=== PATIENT | male | born 1955 | race Caucasian/White ===

== ENCOUNTER → 2017-03-16 11:51 | Outpatient (CLI) | payer OTHER, SELFPAY ==
--- NOTE | 2017-03-16 | CYSPIN_PTH ---
PATIENT: RENALDO LO LOC: [facility] U#:[id number] AGE/SX: 69/M ROOM: RE03/16/[address]: Dr. Monroe Poe MD : 1955 BED: DIS: SPEC #: [id number] RECD: 03/16/17 11:15 STATUS: GRAHAM PAM #: [id number] BRIDGETT: 03/16/17 00:[address]: Monroe Poe DEPT: CYTOLOGY RECD BY: Walt Alfred ENTERED: 03/16/17 13:45 SP TYPE: CYSPIN FL OTHR DR: Dr. Nacho Hurd MD Tissues: Urine Procedures: Pap Stain (control) Special Stain Group II Cytospin Fluid HEADER OPERATION: Not noted PRE-OP DIAGNOSIS: Hematuria R31.9 TISSUE SUBMITTED: Urine for cytology DIAGNOSIS CYTOLOGY Urine for cytology (cytospin): Negative for malignant cells. SJ:angel 03/17/17 CYTOLOGY STUDY Slides are reviewed. The specimen consists of benign urothelial cells, red blood cells, and neutrophils. CYTOLOGY GROSS Received is 80 ml of clear yellow fluid labeled with the patient's name and and designated per the requisition as urine. Submitted for cytology preparation. 03/16/17 TC:5 CPT: 08859
[2017-03-16 11:53] LABS: Cytology, Body Fluid / CSF SEE PATHOLOGY REPORT
== END ==
PROVIDERS: Visit Provider Urology
DX: R31.9 Hematuria, unspecified (principal)
CPT/HCPCS: 88108; 88313

== ENCOUNTER → 2017-09-14 21:50 | Outpatient (CLI) | payer OTHER, SELFPAY ==
--- NOTE | 2017-09-14 09:30 | CYSPIN_PTH ---
PATIENT: RENALDO LO LOC: [facility] U#:[id number] AGE/SX: 69/M ROOM: RE09/14/[address]: WILLARD Jimenez : 1955 BED: DIS: SPEC #: [id number] RECD: 09/15/17 12:55 STATUS: GRAHAM PAM #: [id number] BRIDGETT: 09/14/17 09:[address]: Cristina Barksdale NP DEPT: CYTOLOGY RECD BY: Gregory Esteves ENTERED: 09/15/17 12:55 SP TYPE: CYSPIN FL OT DR: Dr. Nacho Hurd MD Tissues: Urine Procedures: Pap Stain (control) Special Stain Group II Cytospin Fluid HEADER OPERATION: Not noted PRE-OP DIAGNOSIS: Hematuria TISSUE SUBMITTED: Urine for cytology DIAGNOSIS CYTOLOGY Urine for cytology (cytospin): A few atypical urothelial cells noted. ALOK:angel 09/16/17 COMMENT Clinical correlation and appropriate follow up are necessary. Please make reference to previous specimen ([id number]), urine for cytology with diagnosis of negative for malignant cells. Case has been reviewed in consultation with Dr. Salter who concurs with the above diagnosis. IDC:AM CYTOLOGY STUDY Slides are reviewed. CYTOLOGY GROSS Received is 40 ml of cloudy yellow fluid labeled with the patient's name and and designated per the requisition as urine. Submitted for cytology preparation. 09/15/17 TC:5 CPT: 17413
[2017-09-14 21:51] LABS: Cytology, Body Fluid / CSF SEE PATHOLOGY REPORT
== END ==
PROVIDERS: Family Provider Family Medicine; PCP Family Medicine; Visit Provider Nurse Practitioner Adult Health
DX: R31.9 Hematuria, unspecified (principal)
CPT/HCPCS: 88108; 88313

== ENCOUNTER → 2017-12-17 09:14 | Outpatient (CLI) | payer OTHER, SELFPAY ==
[2017-12-21 08:08] LABS: Clam <0.10 kU/L (Class 0); Codfish <0.10 kU/L (Class 0); Corn 0.19 kU/L (Class 0/I); Egg, White <0.10 kU/L (Class 0); Milk (Cow) <0.10 kU/L (Class 0); Peanut 0.11 kU/L (Class 0/I); SCALLOP <0.10 kU/L (Class 0); Shrimp 0.19 kU/L (Class 0/I); Soybean <0.10 kU/L (Class 0); Walnut, (Food) <0.10 kU/L (Class 0); Wheat <0.10 kU/L (Class 0)
[2017-12-21 09:33] LABS: SESAME SEED <0.10 kU/L (Class 0)
== END ==
PROVIDERS: Family Provider Nurse Practitioner Primary Care; PCP Nurse Practitioner Primary Care; Referring Provider Otolaryngology Otolaryngology/Facial Plastic Surgery; Visit Provider Otolaryngology Otolaryngology/Facial Plastic Surgery
DX: T78.40XA Allergy, unspecified, initial encounter (principal)
CPT/HCPCS: 36415; 86003

== ENCOUNTER → 2018-01-11 15:15 | Outpatient (CLI) | payer OTHER, SELFPAY ==
--- NOTE | 2018-01-11 15:17 | CT_ITS ---
STUDY: CT ABDOMEN AND PELVIS WITHOUT CONTRAST REASON FOR EXAM: Male, 62 years old. Left flank pain with hematuria RADIATION DOSAGE (If Supplied By Facility): CTDIvol = ( 8.68 ) mGy, DLP = ( 384.35 ) mGycm TECHNIQUE: Transaxial images were obtained from the dome of the diaphragm to the symphysis pubis without oral contrast, and without intravenous contrast. Sagittal and coronal images were reconstructed. Individualized dose optimization techniques were used for this CT. COMPARISON: None. FINDINGS: The visualized lung bases are unremarkable. Intracardiac wires are noted. The heart size is normal. There is no pericardial effusion. Normal liver. Normal gallbladder and extrahepatic biliary system. Normal spleen. Normal pancreas. Right adrenal calcifications are noted. The left adrenal is normal. There are several nonobstructing right renal calculi, the largest measuring 5.5 mm. There is a 1.3 cm cyst of the lower pole. There are several nonobstructing left renal calculi measuring up to 3 mm. There is minimal prominence of the left pelvicalyceal system relative to the right. There is a mild left hydroureter to the level of the UVJ. There is an obstructing 4 mm calculus in the distal left ureter at the level of the UVJ. Normal visualized stomach. Normal small intestine. There is sigmoid diverticulosis with no evidence of associated diverticulitis. There is a moderate amount of colonic stool. The appendix is visualized and appears normal. There are calcified plaques of the abdominal aorta. Normal inferior vena cava. Normal retroperitoneum. Normal urinary bladder. The prostate is mildly enlarged. The seminal vesicles and seminal vesicle angles appear normal. Normal abdominal wall. Normal osseous structures. CT/Abdomen/Pelvis without Cont IMPRESSION: Nonobstructing bilateral renal calculi. Minimal prominence of the left pelvicalyceal system relative to the right. There is a mild left hydroureter to the level of the UVJ. There is an obstructing 4 mm calculus in the distal left ureter at the level of the UVJ. Sigmoid diverticulosis with no evidence of associated diverticulitis. Mildly enlarged prostate. Right adrenal calcifications are noted. Electronically Signed: Carmine Johnson MD at 17:29 EST , Service support ,
== END ==
PROVIDERS: Family Provider Nurse Practitioner Primary Care; PCP Nurse Practitioner Primary Care; Referring Provider Nurse Practitioner Adult Health; Visit Provider Nurse Practitioner Adult Health
DX: R10.31 Right lower quadrant pain (principal); R31.0 Gross hematuria
CPT/HCPCS: 74176; 87086

== ENCOUNTER 2018-01-12 01:53 | Emergency (ER) | payer OTHER, SELFPAY ==
[2018-01-12 03:55] LABS: Anion Gap 6 (5-15); BUN 19 mg/dL (7-18); BUN/Creat Ratio 17.3 RATIO (10-20); Calcium,Total 8.4 mg/dL (8.5-10.1); Chloride 111 mmol/L (98-107); EST Glomerular Filtration Rate 73 mL/min (>60); Est Glom Filt Rate - Afr Amer 88 mL/min (>60); Glucose 107 mg/dL (74-106); Potassium 3.7 mmol/L (3.5-5.1); Sodium Level 143 mmol/L (136-145)
[2018-01-12 03:56] LABS: Absolute Lymphocyte Count 2.03 X10^3/ul (0.83-4.51); Absolute Neutrophil Count 3.4 X10^3/uL (2.0-7.7); Basophil# 0.07 X10^3/uL; Basophil% 1.1 % (0-1); Eosinophil# 0.26 X10^3/uL; Eosinophils% 4.1 % (0-5); Hematocrit 37.2 % (40-54); Hemoglobin 12.7 g/dl (13.0-16.5); Lymphocyte # 2.03 X10^3/ul (4.0); Lymphocyte % 32.1 % (19-41); Mean Corp Hgb Conc 34.1 g/gl (32-36); Mean Corpuscular Hgb 32.7 pg (27.0-32.0); Mean Corpuscular Volume 95.9 fL (80-94); Mean Platelet Vol. 9.8 fl (6.2-12.0); Monocyte# 0.56 X10^3/uL; Monocyte% 8.9 % (0-10); Neutrophil # 3.39 X10^3/uL (2.7-7.7); Neutrophil % 53.6 % (47-70); POSITIVE COUNT NO; POSITIVE DIFFERENTIAL NO; POSITIVE MORPHOLOGY NO; Platelet Count 199 K/mm3 (150-450); RBC Distribution Width CV 12.6 % (11.6-14.6); RBC Distribution Width SD 42.6 fl (35.1-43.9); Red Blood Count 3.88 M/mm3 (4.6-6.2); White Blood Count 6.3 K/mm3 (4.4-11.0)
== END 2018-01-12 03:35 | disposition home or self-care (01) ==
PROVIDERS: Emergency Provider Emergency Medicine; Family Provider Nurse Practitioner Primary Care; PCP Nurse Practitioner Primary Care
DX: N20.1 Calculus of ureter (principal); K59.00 Constipation, unspecified; K21.9 Gastro-esophageal reflux disease without esophagitis; E78.00 Pure hypercholesterolemia, unspecified; Z95.0 Presence of cardiac pacemaker
CPT/HCPCS: 36415; 80048; 85025; 99283; A4216; J2405

== ENCOUNTER 2018-01-13 04:59 | Observation (INO) | payer OTHER, SELFPAY ==
[2018-01-13 05:00] VITALS: BP 135/90; PULSE 75; RESP 22; TEMP 36.4; O2SAT 100; BMI 22.5
[2018-01-13] MEDS: Ondansetron 4 MG/2 ML Vial IV ×3 (05:21→16:57)
[2018-01-13] MEDS: 0.9% Normal Saline 1,000 ML 1000 ML IV (05:21)
[2018-01-13] MEDS: Morphine 4 MG/ML Syringe IV ×2 (05:22→05:44)
[2018-01-13 05:29] LABS: Absolute Lymphocyte Count 1.49 X10^3/ul (0.83-4.51); Absolute Neutrophil Count 10.6 X10^3/uL (2.0-7.7); Basophil# 0.05 X10^3/uL; Basophil% 0.4 % (0-1); Eosinophil# 0.21 X10^3/uL; Eosinophils% 1.5 % (0-5); Hematocrit 36.1 % (40-54); Hemoglobin 12.6 g/dl (13.0-16.5); Lymphocyte # 1.49 X10^3/ul (4.0); Mean Corp Hgb Conc 34.9 g/gl (32-36); Mean Corpuscular Hgb 33.4 pg (27.0-32.0); Mean Corpuscular Volume 95.8 fL (80-94); Mean Platelet Vol. 9.7 fl (6.2-12.0); Monocyte# 1.19 X10^3/uL; Monocyte% 8.8 % (0-10); Neutrophil # 10.61 X10^3/uL (2.7-7.7); Neutrophil % 78.1 % (47-70); Platelet Count 210 K/mm3 (150-450); RBC Distribution Width CV 12.7 % (11.6-14.6); RBC Distribution Width SD 42.6 fl (35.1-43.9); Red Blood Count 3.77 M/mm3 (4.6-6.2); White Blood Count 13.6 K/mm3 (4.4-11.0)
[2018-01-13 05:32] LABS: POSITIVE COUNT NO; POSITIVE DIFFERENTIAL NO; POSITIVE MORPHOLOGY NO
[2018-01-13 05:34] LABS: Anion Gap 9 (5-15); BUN 19 mg/dL (7-18); BUN/Creat Ratio 12.8 RATIO (10-20); Calcium,Total 8.5 mg/dL (8.5-10.1); Chloride 112 mmol/L (98-107); Creatinine, Serum 1.48 mg/dL (0.70-1.30); EST Glomerular Filtration Rate 52 mL/min (>60); Est Glom Filt Rate - Afr Amer 62 mL/min (>60); Estimated Creatinine Clearance 47.52 ml/min; Glucose 97 mg/dL (74-106); Potassium 3.7 mmol/L (3.5-5.1); Sodium Level 144 mmol/L (136-145)
[2018-01-13 06:01] LABS: Mucous, Urine 0 SEEN /hpf (<or=2+); Squamous Epithelial Cells - UA 0 SEEN /hpf (0-5)
[2018-01-13 06:03] LABS: Color, Urine Yellow (Yellow); Glucose, Dipstick Normal (Normal); Ketone-Dipstick Negative (Negative); Leukocyte Esterase-Dipstick Negative /ul (Negative); Nitrite-Dipstick Negative (Negative); Occult Blood-Urine 50 /ul (Negative); Protein-Dipstick Negative (Negative); Specific Gravity, Urine 1.005 (1.002-1.030); Urine Bilirubin Dipstick Negative (Negative); Urine Clarity Clear (Clear); Urine Urobilinogen Normal (Normal)
[2018-01-13 06:10] LABS: Red Blood Cells-Urine 0-5 SEEN /hpf (0-5)
[2018-01-13 06:11] LABS: Bacteria RARE /hpf (None Seen); White Blood Cells 0-5 SEEN /hpf (0-5)
[2018-01-13] MEDS: HYDROmorphone 1 MG/ML Syringe IV (06:19)
--- NOTE | 2018-01-13 06:20 | ED.VISSUMM ---
- ER Visit Summary Date of Service: 01/13/18 Chief Complaint: Flank pain History of Present Illness: The patient is a 62 M with left-sided flank pain. Patient was seen yesterday and diagnosed with a kidney stone. He plan to follow-up as an outpatient with Dr. Poe. He presents today because the pain is worse. He has increasing nausea and vomiting. No fevers or any other associated symptoms. He has tried tramadol, but it is not helping. Physical Examination: Afebrile and vital signs unremarkable. Patient appears uncomfortable. Alert and oriented. Skin appears normal without diaphoresis or pallor. Heart regular. No respiratory distress. Abdomen soft. Left flank tenderness. Test Results: White count 13.6 and hemoglobin 12.6. BUN 19. Creatinine has increased from 1.1 to 1.48. Urinalysis is unremarkable. Emergency Department Course and Treatment: I reviewed the patient's recent CT. This showed a left UVJ stone measuring 4 mm with mild signs of obstruction. His labs showed worsening creatinine. Vitals stable. He required Zofran, IV fluids, and a couple doses of morphine. He had continued pain and required treatment with Dilaudid. Given his intractable pain and failed outpatient care, I did page Dr. Poe about admission. Treatment Plan: As above Disposition: Admission Impression: 1. Ureteral colic left side This note was generated with [employer] dictation software. It may contain incorrect words, spelling, and punctuation that were not noted in review of the chart prior to signing ED Disposition - Plan for ED Patient: Chief Complaint: Abd Pain Referrals: Lesa Clemente, SENIOR NETWORK SECURITY ARCHITECT-C [Primary Care Provider] -
[2018-01-13 07:05] VITALS: BMI 22.6
--- NOTE | 2018-01-13 07:38 | RAD_ITS ---
STUDY: X-RAY - ABDOMEN/PELVIS REASON FOR EXAM: Male, 62 years old. History of left renal calculus. TECHNIQUE: Two AP supine views of the abdomen and pelvis. COMPARISON: Comparison is made with prior CT scan and abdomen dated January 11, 2018. FINDINGS: Normal visualized lung bases. There is a moderate amount of colonic fecal material. There are several tiny bilateral intrarenal calculi. Normal soft tissue structures. Normal visualized osseous structures. RAD/Abdomen Single View IMPRESSION: Several tiny bilateral intrarenal calculi. Electronically Signed: Isidoro Steel MD at 10:56 EST Tel [phone], Service support ,
--- NOTE | 2018-01-13 07:38 | HP.PCM_ITS ---
History of Present Illness Date of Admission: 01/13/18 Chief Complaint: Left small distal ureteral calculi with intractable pain The patient is a 62 year old male with multiple medical problems who was seen in the office earlier this week with gross hematuria and no symptoms we had a CAT scan done with demonstrated a small stone in the distal left ureter is 4 mm in size, he then developed severe intractable pain went to the ER, was then sent home, now he presented second time to the emergency room and the ER asked me to admit the patient for continued management. Pain is now controlled with morphine plan is to taken to surgery tomorrow for extraction of the stone unless he passes it. Past Medical History Allergies cephalexin Allergy (Verified 01/13/18 05:05) Rash doxycycline Allergy (Verified 01/13/18 05:05) Rash iodine Allergy (Verified 01/13/18 05:05) Shortness of breath sulfamethoxazole [From Bactrim] Allergy (Verified 01/13/18 05:05) Anaphylaxis trimethoprim [From Bactrim] Allergy (Verified 01/13/18 05:05) Anaphylaxis codeine Adverse Reaction (Verified 01/13/18 05:05) Upset Stomach Home Medications: Ambulatory Orders Medication Instructions Recorded Atorvastatin Calcium [Lipitor] 40 mg PO QHS 08/14/15 Meclizine HCl [Antivert] 12.5 mg PO BID PRN PRN 08/14/15 Omeprazole [Prilosec] 20 mg PO DAILY 08/14/15 Potassium Chloride [K-Dur] 10 meq PO DAILY 08/14/15 Promethazine HCl 25 mg PO PRN PRN 08/14/15 Rivaroxaban [Xarelto] 20 mg PO DAILY 08/14/15 Sotalol HCl [Betapace (Beta 160 mg PO BID 08/14/15 Adama)] Spironolactone [Aldactone] 25 mg PO DAILY 08/14/15 Topiramate [Topamax] 100 mg PO BID 08/14/15 Rizatriptan Benzoate [Maxalt] 10 mg PO TID PRN PRN 06/29/16 Gamunex-C IV UD 01/13/18 Trazodone HCl 100 mg PO DAILY 01/13/18 Surgical History: no surgical history Psychiatric History: No pertinent psych hx Lives: Spouse/ Significant Other Smoking Status: Former smoker Tobacco Use: Non-smoker Alcohol: None Drugs: None - *Family History Maternal History Items: No pertinent history Review of Systems Constitutional: Denies: Chills, Fever, Weight Change HEENT: Denies: Head Aches, Sinus Congestion, Sinus Drainage Cardiovascular: Denies: Chest Pain, Palpitations Respiratory: Denies: Cough, Shortness of breath at rest, Sputum production Gastrointestinal: Denies: Abdominal Pain, Nausea, Vomiting Genitourinary: Denies: Dysuria Musculoskeletal: Denies: Joint Pain, Joint Tenderness Skin: Denies: Rash, Wounds Neurological: Denies: Numbness, Tingling, Focal weakness Psychiatric: Denies: Anxiety, Depression, Homicidal Ideations, Suicidal Ideations Hematologic/ Lymphatic: Denies: Easy Bruising, Easy Bleeding VTE Information - Inpt Only VTE Present on Admission: No VTE Mechan Device Prophylaxis: SCD's - Physical Exam General: Alert, Oriented x3, Cooperative HEENT: Atraumatic, PERRLA, EOMI, Normocephalic Neck: Supple, No JVD, Negative Carotid Bruits Lungs: Clear to auscultation, Normal air movement Cardiovascular: Regular rate, No murmurs Abdomen: Bowel Sounds Present, Soft, Non Tender Extremities: No edema, Capillary Refill Less than 3 Seconds Skin: No rashes, No breakdown Musculoskeletal: No Tenderness to Palpation of Joints or Extremities Neurological: Cranial nerves II-XII grossly intact Psych/Mental Status: Normal Affect, Appropriate Vital Signs Temp Pulse Resp BP Pulse Ox 97.5 F L 75 22 H 135/90 H 100 01/13/18 05:00 01/13/18 05:00 01/13/18 05:00 01/13/18 05:00 01/13/18 05:00 Oxygen Delivery Method Room Air Weight: 63.503 kg Body Mass Index (BMI) 22.6 Laboratory Tests Past 24 Hrs 01/13/18 01/13/18 01/13/18 05:10 05:10 05:57 WBC 13.6 H RBC 3.77 L Hgb 12.6 L Hct 36.1 L MCV 95.8 H MCH 33.4 H MCHC 34.9 RDW 12.7 RDW Differential 42.6 Plt Count 210 MPV 9.7 Immature Gran % (Auto) 0.200 Neut % (Auto) 78.1 H Lymph % (Auto) 11.0 L [place] % (Auto) 8.8 Eos % (Auto) 1.5 Baso % (Auto) 0.4 Absolute Neuts (auto) 10.6 H Absolute Lymphs (auto) 1.49 Total Counted Not Reportable Sodium 144 Potassium 3.7 Chloride 112 H Carbon Dioxide 23.0 Anion Gap 9 BUN 19 H Creatinine 1.48 H Estim Creat Clear Calc 47.52 Est GFR (MDRD) Af Amer 62 Est GFR (MDRD) Non-Af 52 L BUN/Creatinine Ratio 12.8 Glucose 97 Calcium 8.5 Urine Color Yellow Urine Clarity Clear Urine pH 7.0 Ur Specific Barnard 1.005 Urine Protein Negative Urine Glucose (UA) Normal Urine Ketones Negative Urine Occult Blood 50 H Urine Nitrite Negative Urine Bilirubin Negative Urine Urobilinogen Normal Ur Leukocyte Esterase Negative Urine RBC 0-5 SEEN Urine WBC 0-5 SEEN Ur Squamous Epith Cells 0 SEEN Urine Bacteria RARE Urine Mucus 0 SEEN Assessment/Plan 62-year-old male with a small 4 mm stone distal left ureter admitted for pain control plan to make him n.p.o. at midnight strain all urine and will add him on for the surgery schedule for ureteroscopy laser lithotripsy removal of stone and stent placement.
[2018-01-13 08:00] VITALS: BP 92/58; PULSE 69; RESP 16; TEMP 36.7; O2SAT 96
[2018-01-13] MEDS: 0.9% Normal Saline 1,000 ML 75 ML IV ×2 (08:08→21:44)
--- NOTE | 2018-01-13 08:08 | PCA ---
patient perioperative CIED management communication form faxed to doctor Ced Campos ,[facility], phone number - [phone] fax number [phone]
[2018-01-13] MEDS: 0.9% NaCl VAD Flush 10 ML IV (10:13)
[2018-01-13] MEDS: oxyCODONE 5 MG Tablet PO ×2 (10:27→16:57)
[2018-01-13] MEDS: Sotalol Hydrochloride 80 MG Tablet 160 MG PO ×2 (11:26→21:41)
[2018-01-13] MEDS: Topiramate 100 MG Tablet PO ×2 (11:26→21:43)
[2018-01-13] MEDS: Docusate Sodium 100 MG Capsule PO ×2 (11:27→21:42)
[2018-01-13] MEDS: Spironolactone 25 MG Tablet PO (11:27)
[2018-01-13] MEDS: Pantoprazole Sodium 40 MG Tablet PO (11:27)
[2018-01-13 11:30] VITALS: BP 115/82; PULSE 75
[2018-01-13] MEDS: Acetaminophen 325 MG Tablet PO (13:57)
[2018-01-13 14:00] VITALS: BP 122/76; PULSE 76; RESP 18; TEMP 36.7; O2SAT 98
[2018-01-13 21:00] VITALS: BP 119/83; PULSE 76; RESP 16; TEMP 36.5; O2SAT 99
[2018-01-13] MEDS: Ibuprofen 600 MG Tablet PO (21:41)
[2018-01-13] MEDS: traZODone 100 MG Tablet PO (21:42)
[2018-01-13] MEDS: Atorvastatin Calcium 40 MG Tablet PO (21:42)
[2018-01-14] VITALS (10 sets, daily range): BP systolic 81–141; BP diastolic 53–84; PULSE 72–76; RESP 16–18; TEMP 36.4–36.8; O2SAT 92–100
--- NOTE | 2018-01-14 05:00 | EKG12_ITS ---
Test Reason : PRE-OP Blood Pressure : / mmHG Vent. Rate : 075 BPM Atrial Rate : 075 BPM P-R Int : 246 ms QRS Dur : 088 ms QT Int : 412 ms P-R-T Axes : 000 037 018 degrees QTc Int : 460 ms Atrial-paced rhythm with prolonged AV conduction Abnormal ECG No previous ECGs available Confirmed by AKIN FRASER, EILEEN ([id number]), film or videotape editor MANOLO PAGAN ([id number]) on 01/17/2018 2:55:05 PM Referred By: Cristina Barksdale Confirmed By:EILEEN GERARDO MD
[2018-01-14] MEDS: 0.9% Normal Saline 1,000 ML 75 ML IV (10:05)
[2018-01-14] MEDS: Ibuprofen 600 MG Tablet PO (10:07)
[2018-01-14] MEDS: Sotalol Hydrochloride 80 MG Tablet 160 MG PO (10:08)
[2018-01-14] MEDS: Topiramate 100 MG Tablet PO (10:08)
[2018-01-14] MEDS: Pantoprazole Sodium 40 MG Tablet PO (10:08)
[2018-01-14] MEDS: Spironolactone 25 MG Tablet PO (10:09)
[2018-01-14] MEDS: Docusate Sodium 100 MG Capsule PO (10:09)
--- NOTE | 2018-01-14 14:49 | NURSING ---
call placed to AC and report given to Rn taking over care for this patient
--- NOTE | 2018-01-14 16:53 | DCINST_ITS ---
Discharge Diet: Light diet - advance as tolerated Discharge Activity: Return to Normal Activity Call your doctor if you observe: Fever of 101 or Higher Allergies/Adverse Reactions: Allergies cephalexin Allergy (Verified 01/13/18 05:05) Rash doxycycline Allergy (Verified 01/13/18 05:05) Rash iodine Allergy (Verified 01/13/18 05:05) Shortness of breath sulfamethoxazole [From Bactrim] Allergy (Verified 01/13/18 05:05) Anaphylaxis trimethoprim [From Bactrim] Allergy (Verified 01/13/18 05:05) Anaphylaxis codeine Adverse Reaction (Verified 01/13/18 05:05) Upset Stomach Medications to take at Discharge Atorvastatin Calcium [Lipitor] 40 mg PO QHS 08/14/15 Meclizine HCl [Antivert] 12.5 mg PO BID PRN PRN 08/14/15 Omeprazole [Prilosec] 20 mg PO DAILY 08/14/15 Potassium Chloride [K-Dur] 10 meq PO DAILY 08/14/15 Promethazine HCl 25 mg PO PRN PRN 08/14/15 Rivaroxaban [Xarelto] 20 mg PO DAILY 08/14/15 Sotalol HCl [Betapace (Beta Adama)] 160 mg PO BID 08/14/15 Spironolactone [Aldactone] 25 mg PO DAILY 08/14/15 Topiramate [Topamax] 100 mg PO BID 08/14/15 Rizatriptan Benzoate [Maxalt] 10 mg PO TID PRN PRN 06/29/16 Gamunex-C 30 gm IV UD 01/13/18 Trazodone HCl 100 mg PO DAILY 01/13/18 Oxycodone HCl/Acetaminophen [Percocet 5/325] 1 tab PO Q4H PRN PRN 5 Days #14 tab 01/14/18 Phenazopyridine [Pyridium] 100 mg PO TID #15 tab 01/14/18 The following prescriptions were given: Oxycodone HCl/Acetaminophen [Percocet 5/325] 1 tab PO Q4H PRN PRN 5 Days #14 tab PRN Reason: Pain Phenazopyridine [Pyridium] 100 mg PO TID #15 tab Primary Care Physician: Lesa Clemente NP-C [Primary Care Provider] - Test Results: Test results from this visit will be discussed in further detail at your follow- up appointment, if applicable. Please Follow Up With: Monroe Poe MD When: please call to make an appointment.
[2018-01-14] MEDS: Ciprofloxacin 400 MG/200 ML BAG 200 MG IV (17:05)
--- NOTE | 2018-01-14 17:24 | OP.PCM_ITS ---
Report of Operation Date of Procedure: 01/14/18 Pre-Operative Diagnosis: Left ureteral calculi Post-Operative Diagnosis: Same Surgery/Procedure Performed:: Cystoscopy extraction of stone from the bladder, placement of left ureteral catheter Description of Surgical Findings:: 62-year-old male who was admitted to the hospital severe pain from a 4 mm stone in the distal left ureter he failed to pass the stone after 24 hours therefore offer the patient intervention and he is agreeable with ureteroscopy and laser basket and possible stent. 62-year-old male taken back to the operating room at the smooth induction of general anesthesia he was placed supine on the table in dorsal lithotomy position the penis testicles are prepped and draped with baby soap in the usual sterile fashion. I then went into the bladder with a 21 Romansh rigid cys tourethroscope upon entry into the bladder there was a stone in the bladder itself and this must be the stone that was in the distal ureter I then extracted the stone in the bladder cannulated the left ureteral orifice with a Glidewire advanced this up to check the ureter there is no other stones that I could feel in the ureter and the ureter pulled out the ureteral catheter and I could see urine draining from the left kidney. I then drained the bladder could see urine draining from the left ureter and the right ureter stone was extracted and patient anesthetic was reversed taken back to PACU good condition Type of Anesthesia:: General Drains: none - Admit VTE Documentation VTE Present on Admission: No VTE Mechan Device Prophylaxis: SCD's
[2018-01-14] MEDS: 0.9% NaCl VAD Flush 10 ML IV (20:14)
--- NOTE | 2018-01-18 | CALC_PTH ---
PATIENT: RENALDO LO LOC: [facility]3 U#:[id number] AGE/SX: 62/M ROOM: [facility] [place] RE01/13/[address]: Dr. Monroe Poe MD : 1955 BED: 1 DIS: 01/14/2018 SPEC #: [id number] RECD: 01/18/18 13:25 STATUS: GRAHAM PAM #: [id number] BRIDGETT: 01/18/18 00:[address]: Monroe Poe DEPT: SURGICAL PATHOLOGY RECD BY: Alok Cantu ENTERED: 01/18/18 13:25 SP TYPE: Calculi OTHR DR: Lesa Clemente, ACCOUNTS EXECUTIVE-C Tissues: CALCULI Procedures: Surgery Specimen Level I HEADER OPERATION: Cystoscopy, extraction of stone PRE-OP DIAGNOSIS: Left ureteral calculus TISSUE SUBMITTED: Left ureteral calculus GROSS DIAGNOSIS A fragment of stone, clinically left ureteral calculus, submitted entirely for stone analysis. SJ:angel 01/18/18 COMMENT The calculus is submitted in its entirety for chemical stone analysis. The results from this study will be reported separately. GROSS DESCRIPTION Received in fixative is one container labeled with the patient's name and designated calculi urinary. The specimen consists of a fragment of ling-light brown stone measuring 0.3 x 0.3 x 0.2 cm. The entire specimen is submitted for stone analysis. / ALOK:angel 01/18/18 CPT: 03489
[2018-01-28 09:37] LABS: Ca Oxalate, Monohydrate 45 % (.); Calcium Phosphate 55 % (.); Size 4x3x2 mm (.)
== END 2018-01-14 20:25 | disposition home or self-care (01) ==
LOC: ED 05:35 → MS3 06:44
PROVIDERS: Admitting Provider Urology; Emergency Provider Emergency Medicine; Family Provider Nurse Practitioner Primary Care; PCP Nurse Practitioner Primary Care; Visit Provider Urology
PROC: 0TJ98ZZ Inspection of Ureter, Via Natural or Artificial Opening Endoscopic (ICD-10-PCS; CPT 52352; principal; 2018-01-14 15:15)
DX: N20.1 Calculus of ureter (principal); R31.0 Gross hematuria; Z87.891 Personal history of nicotine dependence; N21.0 Calculus in bladder; Z79.899 Other long term (current) drug therapy; Z79.01 Long term (current) use of anticoagulants; I48.91 Unspecified atrial fibrillation; Z95.0 Presence of cardiac pacemaker; G25.81 Restless legs syndrome; E78.00 Pure hypercholesterolemia, unspecified; K21.9 Gastro-esophageal reflux disease without esophagitis
CPT/HCPCS: 00910; 52310; 36591; 74018; 80048; 81001; 82360; 85025; 88300; 93005; 96361; 96374; 96375; 96376; 97802; 99218; 99281; J7030; A4216; G0378; J0744; J2405

== ENCOUNTER → 2018-02-12 12:50 | Outpatient (CLI) | payer OTHER, SELFPAY ==
[2018-01-13 07:05] VITALS: BMI 22.6
== END ==
PROVIDERS: Visit Provider Otolaryngology Otolaryngology/Facial Plastic Surgery
DX: J32.9 Chronic sinusitis, unspecified (principal)
CPT/HCPCS: 87070; 87205

== ENCOUNTER 2018-10-07 09:00 | Outpatient (RCR) | payer OTHER, SELFPAY ==
[2018-01-13 07:05] VITALS: BMI 22.6
--- NOTE | 2018-04-20 14:49 | HP.PTEVAL ---
Patient's Visit Information RENALDO LO is a 62 year old M referred to Physical Therapy by HAY CELESTIN with a diagnosis of CHRONIC INFAMMATORY DEMYELINATING POLYNEUROAPTHY ,GAIT DISTURBANCE. Date of Evaluation: 04/20/18 Physical Therapist: Carl Heard, PT, Cert MDT, OCS - Visit Plan Frequency: 2x /Week Duration: 4 Weeks Plan: Aquatic PT for BLE strengthening,gait,balance,endurance - Subjective Findings: This 62 y/o male presenst to physical therapy with lower extremity weakness left greater than right. 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 Weakness progessively became worse on left side wirh drop foot affects entire leg. Patient has severe pain left leg which requires infusion IV IG for 2 days . Patient use cane for extended distance. Patient has parathesia/tingling left leg. Patient condition affects QOL and function. Patient has limiations with ADL's and housework tasks. Patient was geeting PT at [facility]. Patient pain affects sleeping. SOCAIL: . VOCATION: disablity - Pain Left Lower Extremity Pain Intensity (Out of 10): 7 Pain Intensity Range: 10 - Objective POSTURE: mild foward posture. GAIT: mild foward posture antalgic gait with decrease stance time left side with cane. NEURO: c/o parathesia/tingling left ,light touch intact,reflexes L3-4,L4-5,L5-S1 3/3. BALANCE: fair+ with cane uses left AFO. MMT: quad 3-/5,hams 3/5,hipw flexion 3-/5,abd 2/3,ankle 2/5. STAIRS: one step at at time cane rail - Balance Scores CATSIB Score (Max score 120 seconds): 30 - Goals Goal 1:: Independant with Aquatic PT. Goal Time Frame: 4-6 Weeks Goal 2:: Ambulate with improve gait using cane 70% of the time. Goal Time Frame: 4-6 Weeks Goal 3:: Decrease pain by 30-40% or greater bto improve function. Goal Time Frame: 4-6 Weeks Goal 4:: Patient to improve left leg strength to 3+/5 to improve function and gait Goal Time Frame: 4-6 Weeks Goal 5:: Patient to improve LFES score by 5-10 points to improve function. - Rehabilitation Potential Physical Therapy Diagnosis: This patient developed CIDP which affects left side with weakness impairs gait ,balance and function thus beinifit from skilled PT Rehabilitation Potential: Fair - Anticipated Interventions Patient/Client Instruction: Educate patient on: Condition, Plan of Care For the Purpose of:: To improve muscle performance and motor function, To improve ability to perform ADL's, To improve performance and independence with ADL's, To decrease level of supervision to perform tasks, To improve ability of physical actions for home/community/work/leisure, To improve gait and locomotor functions, To improve endurance, To improve balance, To improve safety with gait, To improve ability to perform tasks related to life management Therapeutic Exercise to Include: Strength training, Endurance training, Balance training, Coordination, Flexibilty training, Gait and locomotor training, In an aquatic setting, Dynamic Lumbar Stabilization Comment: BLLE For the Purpose of:: To improve muscle performance and motor function, To improve ability to perform ADL's, To increase tolerance to activity/condition/position, To improve performance and independence with ADL's, To decrease level of supervision to perform tasks, To improve ability of physical actions for home/community/work/leisure, To improve gait and locomotor functions, To improve endurance, To improve balance, To improve safety with gait, To assume or resume ADL's Thank you for the opportunity to evaluate your patient. For Medicare and Medicare HMO plans, please review the plan of care and approve it. It will need to be FAXED BACK to us at [phone] for Medicare purposes. For Medicare only, by signing this I certify the plan of care. Please let me know if there are questions or concerns regarding this plan of care. Physician Signature: Date:
--- NOTE | 2018-10-07 09:29 | HP.PTDCSUM_ITS ---
HP - PT D/C Summary It has been my pleasure to treat RENALDO LO under orders from HAY CELESTIN, for the diagnosis of CHRONIC INFAMMATORY DEMYELINATING POLYNEUROAPTHY ,GAIT DISTURBANCE for a total of 16 visit(s). Discharge Date: 10/07/18 Please see the following information for a summary of their discharge status. - Subjective Subjective: Patient seen DR durham predisone . Patient had infusion helped.Aquatic PT can help pain. IM not getting as sick - Pain Left Lower Extremity Pain Intensity (Out of 10): 4 Right Lower Extremity Pain Intensity (Out of 10): 4 - Overall Improvement % Improvement: 40 - Objective Objective/Function: POSTURE: mild foward posture. GAIT: mild foward posture unsteady gait. BALANCE: fair+. MMT: hip flexion 3+/5 right,3/5 ,quads/hams 4- /5 R,3+/5 L. LUMBAR ROM: flexion mod/sever loss.extension severe loss - Goals Goal 1:: Independant with Aquatic PT. Goal Progress: Goal Met Goal 2:: Ambulate with improve gait using cane 70% of the time. Goal Progress: Progressing Goal 3:: Decrease pain by 30-40% or greater bto improve function. Goal Progress: Progressing Goal 4:: Patient to improve left leg strength to 3+/5 to improve function and gait Goal Progress: Progressing Goal 5:: Patient to improve LFES score by 5-10 points to improve function. Goal Progress: Progressing - Plan Plan: D/C aquatic therapy own - D/C Information Discharge Comments: Aquatic on own If there are questions or concerns regarding this patient's physical therapy, please feel free to call me at [phone]. Thank you for the referral of this patient. Sincerely, Carl Heard, PT, Cert MDT, OCS
== END 2018-10-07 19:00 | disposition home or self-care (01) ==
LOC: PT 09:00
PROVIDERS: Family Provider Nurse Practitioner Primary Care; PCP Nurse Practitioner Primary Care
DX: R26.9 Unspecified abnormalities of gait and mobility (principal); G54.1 Lumbosacral plexus disorders; G61.81 Chronic inflammatory demyelinating polyneuritis
CPT/HCPCS: 97113; 97162; 97530

== ENCOUNTER → 2018-10-14 15:38 | Outpatient (CLI) | payer OTHER, SELFPAY ==
[2018-01-13 07:05] VITALS: BMI 22.6
== END ==
PROVIDERS: Family Provider Nurse Practitioner Primary Care; PCP Nurse Practitioner Primary Care; Referring Provider Otolaryngology Otolaryngology/Facial Plastic Surgery; Visit Provider Otolaryngology Otolaryngology/Facial Plastic Surgery
DX: J34.89 Other specified disorders of nose and nasal sinuses (principal)
CPT/HCPCS: 87070; 87205

== ENCOUNTER → 2023-08-05 | Outpatient (CLI) | payer SELFPAY ==
[2023-08-05 10:37] LABS: SERUM TEARS COLLECTION SPECIMEN PROCESSED
== END | disposition home or self-care (01) ==
LOC: LAB 08:31
PROVIDERS: PCP Nurse Practitioner Primary Care; Referring Provider Ophthalmology; Visit Provider Ophthalmology
DX: Z00.00 Encounter for general adult medical examination without abnormal findings (principal)
CPT/HCPCS: 36415

== ENCOUNTER 2024-02-14 09:15 | Day surgery (SDC) | payer MEDICARE, OTHER, SELFPAY ==
--- NOTE | 2024-02-11 12:21 | PAT.ANESEVAL ---
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 When Was Last Pacemaker Check 01/12/2017 01/13/18 06:59 QUESTION #4 FULL TEXT: You/Your Family Experience fever (hyperthermia) with Anesthesia Last Oral Intake Last Oral intake: Last Oral Intake NPO since Meds taken in AM with sips of water? Meds patient instructed to take am of surgery PONV PONV - online merchandising specialist: PONV - online merchandising specialist Female No 02/11/24 11:50 HX of Motion Sickness No 02/11/24 11:50 HX of N/V After Surgery No 02/11/24 11:50 Non-Smoker Yes 02/11/24 11:50 Duration of Surgery greater No 02/11/24 11:50 than 60 minutes Number of Risk Factors 1 02/11/24 11:50 PONV Score Low Risk 02/11/24 11:50 Respiratory Assessment Respiratory Assessment - online merchandising specialist: Respiratory Tract Infection Hx - online merchandising specialist Hx Respiratory Tract Infection No 02/11/24 11:50 STOP Sleep Apnea STOP Sleep Apnea - online merchandising specialist: STOP Sleep Apnea - online merchandising specialist Hx Hypertension Yes: CONTROLLED ON MED 02/11/24 11:50 Hx Sleep Apnea No 02/11/24 11:50 CPAP No 02/11/24 11:50 BIPAP Do you snore loudly (louder No 02/11/24 11:50 than talking or can be heard Do you often feel tired/ No 02/11/24 11:50 fatigued/ sleepy during daytime? Has anyone observed you stop No 02/11/24 11:50 breathing during sleep? STOP Results Negative 02/11/24 11:50 QUESTION #5 FULL TEXT : Do you snore loudly (louder than talking or can be heard through closed doors)? 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 Specify any problems Hx of Preganancy in last 3 N/A 02/11/24 11:50 Months Nurse Filling Out Transfusion VCHRISTIN 02/11/24 11:50 & Questions: Date: 02/11/24 02/11/24 11:50 Time: 11:51 02/11/24 11:50 Patient unable to answer at this time (ie. confused, unrespo /Reproduction History /Reproductive History - online merchandising specialist: /Reproductive Hx- online merchandising specialist Hx Now Gestational Age (in weeks): EDC: Hx Hx Para Hx Section SAB PFSH Medical History (Updated 02/11/24 @ 11:49 by Sherri Cummins) Cancer History of steroid therapy Arthritis Kidney stones High cholesterol Anemia DVT (deep venous thrombosis) Back pain Migraine headache History of diverticulitis Non-smoker Tremors of nervous system Hoarseness Shortness of breath on exertion CIDP (chronic inflammatory demyelinating polyneuropathy) Hypertension History of echocardiogram Cardiology follow-up encounter History of irregular heartbeat History of atrial fibrillation Hx of cardiac pacemaker Home Medications ?Medication ?Instructions ?Recorded ?Last Taken ?Type atorvastatin 40 mg tablet 40 mg PO QHS cholesterol 08/14/15 01/12/18 22:00 History 40 mg omeprazole 20 mg capsule,delayed 20 mg PO DAILY gerd 08/14/15 01/12/18 08:00 History release potassium chloride 10 mEq 10 meq PO DAILY supplement 08/14/15 01/12/18 08:00 History tablet,extended release(part/cryst) 10 meq promethazine 25 mg tablet 25 mg PO PRN PRN Nausea 08/14/15 Unknown History spironolactone 25 mg tablet 25 mg PO DAILY bp 08/14/15 01/12/18 08:00 History 25 mg Gamunex-C 30 g IV UD 01/13/18 Unknown History trazodone 150 mg tablet 150 mg PO DAILY sleep 01/13/18 01/11/18 22:00 History 100 mg acetaminophen 325 mg tablet (Pain 650 mg PO QWEEK 02/11/24 Unknown History Reliever (acetaminophen)) alendronate 70 mg tablet 70 mg PO QWEEK 02/11/24 Unknown History aspirin 81 mg capsule 81 mg PO DAILY 02/11/24 02/02/24 History cyanocobalamin (vitamin B-12) 1,000 mcg PO DAILY 02/11/24 Unknown History 1,000 mcg tablet (Vitamin B-12) dextrose 5 % in water (D5W) 250 ml IV UD 02/11/24 Unknown History diphenhydramine HCl 25 mg capsule 25 mg PO QWEEK 02/11/24 Unknown History (Allergy Medication) eletriptan 40 mg tablet 40 mg PO Q2H PRN migraine headache 02/11/24 Unknown History erenumab-aooe 140 mg/mL 140 mg subcut QMONTH 02/11/24 Unknown History subcutaneous auto-injector (Aimovig Autoinjector) hydrocortisone sod succinate 100 100 mg IM UD 02/11/24 Unknown History mg solution for injection (Solu-Cortef) hydroxychloroquine 200 mg tablet 300 mg PO DAILY 02/11/24 Unknown History ipratropium bromide 42 mcg (0.06 2 spray intranasal BID 02/11/24 Unknown History %) nasal spray mycophenolate mofetil 500 mg tablet 500 mg PO BID 02/11/24 Unknown History prednisone 20 mg tablet 20 mg PO DAILY 02/11/24 Unknown History propranolol 80 mg tablet 80 mg PO BID 02/11/24 Unknown History tamsulosin 0.4 mg capsule 0.4 mg PO DAILY 02/11/24 Unknown History Allergy/AdvReac Type Severity Reaction Status Date / Time adhesive Allergy Severe Rash Verified 02/11/24 11:12 Iodinated Contrast Media Allergy Severe Other Verified 02/11/24 11:12 (DYEE) iodine Allergy Severe Shortness Verified 02/11/24 11:12 of breath cephalexin Allergy Rash Verified 02/11/24 11:12 doxycycline Allergy Rash Verified 02/11/24 11:12 sulfamethoxazole (From Allergy Anaphylaxis Verified 02/11/24 11:12 Bactrim) trimethoprim (From Bactrim) Allergy Anaphylaxis Verified 02/11/24 11:12 codeine AdvReac Upset Verified 02/11/24 11:12 Stomach Surgical History (Updated 02/11/24 @ 11:49 by Sherri Cummins) History of cardiac catheterization Hx of colonoscopy History of esophagogastroduodenoscopy (EGD) Hx of hemorrhoidectomy Hx of foot operation Hx of knee surgery Hx of tonsillectomy Hx of laminectomy Hx of cystostomy Hx of bilateral cataract extraction Hx of surgical procedure Hx of blepharoplasty Social History Smoking Status: Former smoker Audit: Pertinent Findings Pertinent Findings EKG Perinent findings: 01/2018 atrial paced rhythm with prolonged AV conduction abnormal EKG rate 75 bpm Consult pertinent findings: Cardiology 01/14/2024 1 atrial fibrillation paroxysmal 2 hypertension 3 chronic inflammatory demyelinating polyneuropathy pacemaker maker management per ER EP Recommendation Anesthesia Recommendation Anesthesia recommendation: OPTIMIZED for anesthesia
--- NOTE | 2024-02-14 09:38 | PCM.PRE.AN2 ---
ASA Classification* ASA Classification ASA Classification: 3 Assessment & Plan Anesthesia* Anesthesia Assessment Anesthesia Assessment: Discussed sedation and/or anesthesia options, risks, benefits, and alternatives with patient/parents/legal guardian/POA. Questions invited. The patient/parents/legal guardian/POA seems to understand and agrees to proceed with anesthesia plan. Reviewed the physical assessment, medical history, allergy history and patient home medications list prior to surgery/procedure/anesthetic and documented any changes. Performed airway and anesthesia risk assessments. Anesthesia Type Anesthesia Type: General Anesthesia Focused Assessment* Airway Assessment Mouth opens: >3 cm Mallampati Score: II Focused Labs Anesthesia Preop lab: CBC WBC 13.6 K/mm3 (4.4-11.0) H 01/13/18 05:10 RBC 3.77 M/mm3 (4.6-6.2) L 01/13/18 05:10 Hgb 12.6 g/dl (13.0-16.5) L 01/13/18 05:10 Hct 36.1 % (40-54) L 01/13/18 05:10 Plt Count 210 K/mm3 (150-450) 01/13/18 05:10 CHEMISTRY Potassium 3.7 mmol/L (3.5-5.1) 01/13/18 05:10 Sodium 144 mmol/L (136-145) 01/13/18 05:10 BUN 19 mg/dL (7-18) H 01/13/18 05:10 Creatinine 1.48 mg/dL (0.70-1.30) H 01/13/18 05:10 Glucose 97 mg/dL (74-106) 01/13/18 05:10 COAG Pre-Assessment Diagnosis/Proposed Procedure Planned Operative Procedure(s): (B) BMT with T tubes Anesthesia History 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 When Was Last Pacemaker Check 01/12/2017 01/13/18 06:59 QUESTION #4 FULL TEXT: You/Your Family Experience fever (hyperthermia) with Anesthesia Last Oral Intake Last Oral intake: Last Oral Intake NPO since Meds taken in AM with sips of water? Meds patient instructed to take am of surgery PONV PONV - rubber goods assembler: PONV - rubber goods assembler Female No 02/11/24 11:50 HX of Motion Sickness No 02/11/24 11:50 HX of N/V After Surgery No 02/11/24 11:50 Non-Smoker Yes 02/11/24 11:50 Duration of Surgery greater No 02/11/24 11:50 than 60 minutes Number of Risk Factors 1 02/11/24 11:50 PONV Score Low Risk 02/11/24 11:50 Respiratory Assessment Respiratory Assessment - rubber goods assembler: Respiratory Tract Infection Hx - rubber goods assembler Hx Respiratory Tract Infection No 02/11/24 11:50 STOP Sleep Apnea STOP Sleep Apnea - rubber goods assembler: STOP Sleep Apnea - rubber goods assembler Hx Hypertension Yes: CONTROLLED ON MED 02/11/24 11:50 Hx Sleep Apnea No 02/11/24 11:50 CPAP No 02/11/24 11:50 BIPAP Do you snore loudly (louder No 02/11/24 11:50 than talking or can be heard Do you often feel tired/ No 02/11/24 11:50 fatigued/ sleepy during daytime? Has anyone observed you stop No 02/11/24 11:50 breathing during sleep? STOP Results Negative 02/11/24 11:50 QUESTION #5 FULL TEXT : Do you snore loudly (louder than talking or can be heard through closed doors)? Tobacco Use History Tobacco Use History - rubber goods assembler: Tobacco Use History - rubber goods assembler Tobacco Use Smoking Status Former smoker 02/11/24 11:50 Hx Tobacco Use No 02/11/24 11:50 Years Smoking Packs Smoked per Day Smoking Cessation Date was No - quit smoking greater 02/11/24 11:50 within the last 15 years than 15 years ago Hx Smoking Cessation Date Hx Smoking Cessation Counseling Hematologic Medial History Hematologic Hx - rubber goods assembler: Hematologic Medical Hx - documentation spec Hx of Blood Transfusion Yes 02/11/24 11:50 Hx of Transfusion in last 3 Yes 02/11/24 11:50 Months Date of Last Transfusion (if 12/0102/11/24 11:50 within last 3 months) Ever experience any problems No 02/11/24 11:50 with transfusion(s)? Specify any problems Hx of Preganancy in last 3 N/A 02/11/24 11:50 Months Nurse Filling Out Transfusion VCHRISTIN 02/11/24 11:50 & Questions: Date: 02/11/24 02/11/24 11:50 Time: 11:51 02/11/24 11:50 Patient unable to answer at this time (ie. 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: /Reproductive Hx- rubber goods assembler Hx Now Gestational Age (in weeks): EDC: Hx Hx Para Hx Section SAB Active Medications Active Medications: Current Medications Generic Name Dose Route Start Last Admin Trade Name Freq PRN Reason Stop Dose Admin Sodium Chloride 1,000 mls @ 15 mls/hr 02/14/24 09:40 IV 02/17/24 04:19 .Q48H [facility] Protocol PFSH Medical History Cancer History of steroid therapy Arthritis Kidney stones High cholesterol Anemia DVT (deep venous thrombosis) Back pain Migraine headache History of diverticulitis Non-smoker Tremors of nervous system Hoarseness Shortness of breath on exertion CIDP (chronic inflammatory demyelinating polyneuropathy) Hypertension History of echocardiogram Cardiology follow-up encounter History of irregular heartbeat History of atrial fibrillation Hx of cardiac pacemaker Home Medications ?Medication ?Instructions ?Recorded ?Last Taken ?Type atorvastatin 40 mg tablet 40 mg PO QHS cholesterol 08/14/15 01/12/18 22:00 History 40 mg omeprazole 20 mg capsule,delayed 20 mg PO DAILY gerd 08/14/15 01/12/18 08:00 History release potassium chloride 10 mEq 10 meq PO DAILY supplement 08/14/15 01/12/18 08:00 History tablet,extended release(part/cryst) 10 meq promethazine 25 mg tablet 25 mg PO PRN PRN Nausea 08/14/15 Unknown History spironolactone 25 mg tablet 25 mg PO DAILY bp 08/14/15 01/12/18 08:00 History 25 mg Gamunex-C 30 g IV UD 01/13/18 Unknown History trazodone 150 mg tablet 150 mg PO DAILY sleep 01/13/18 01/11/18 22:00 History 100 mg acetaminophen 325 mg tablet (Pain 650 mg PO QWEEK 02/11/24 Unknown History Reliever (acetaminophen)) alendronate 70 mg tablet 70 mg PO QWEEK 02/11/24 Unknown History aspirin 81 mg capsule 81 mg PO DAILY 02/11/24 02/02/24 History cyanocobalamin (vitamin B-12) 1,000 mcg PO DAILY 02/11/24 Unknown History 1,000 mcg tablet (Vitamin B-12) dextrose 5 % in water (D5W) 250 ml IV UD 02/11/24 Unknown History diphenhydramine HCl 25 mg capsule 25 mg PO QWEEK 02/11/24 Unknown History (Allergy Medication) eletriptan 40 mg tablet 40 mg PO Q2H PRN migraine headache 02/11/24 Unknown History erenumab-aooe 140 mg/mL 140 mg subcut QMONTH 02/11/24 Unknown History subcutaneous auto-injector (Aimovig Autoinjector) hydrocortisone sod succinate 100 100 mg IM UD 02/11/24 Unknown History mg solution for injection (Solu-Cortef) hydroxychloroquine 200 mg tablet 300 mg PO DAILY 02/11/24 Unknown History ipratropium bromide 42 mcg (0.06 2 spray intranasal BID 02/11/24 Unknown History %) nasal spray mycophenolate mofetil 500 mg tablet 500 mg PO BID 02/11/24 Unknown History prednisone 20 mg tablet 20 mg PO DAILY 02/11/24 Unknown History propranolol 80 mg tablet 80 mg PO BID 02/11/24 Unknown History tamsulosin 0.4 mg capsule 0.4 mg PO DAILY 02/11/24 Unknown History Allergy/AdvReac Type Severity Reaction Status Date / Time adhesive Allergy Severe Rash Verified 02/11/24 11:12 Iodinated Contrast Media Allergy Severe Other Verified 02/11/24 11:12 (DYEE) iodine Allergy Severe Shortness Verified 02/11/24 11:12 of breath cephalexin Allergy Rash Verified 02/11/24 11:12 doxycycline Allergy Rash Verified 02/11/24 11:12 sulfamethoxazole (From Allergy Anaphylaxis Verified 02/11/24 11:12 Bactrim) trimethoprim (From Bactrim) Allergy Anaphylaxis Verified 02/11/24 11:12 codeine AdvReac Upset Verified 02/11/24 11:12 Stomach Surgical History History of cardiac catheterization Hx of colonoscopy History of esophagogastroduodenoscopy (EGD) Hx of hemorrhoidectomy Hx of foot operation Hx of knee surgery Hx of tonsillectomy Hx of laminectomy Hx of cystostomy Hx of bilateral cataract extraction Hx of surgical procedure Hx of blepharoplasty Social History Smoking Status: Former smoker Review of Systems (Anesthesia) ROS Narrative System reviewed and no additional complaints, except as documented.
[2024-02-14 09:58] VITALS: BP 114/90; PULSE 75; RESP 16; TEMP 36.2; O2SAT 100; BMI 22.8
[2024-02-14 10:04] LABS: Hematocrit 31.9 % (40-54); Hemoglobin 9.8 g/dL (13.0-16.5); Mean Corp Hgb Conc 30.7 g/dL (32-36); Mean Corpuscular Hgb 29.9 pg (27.0-32.0); Mean Corpuscular Volume 97.3 fL (80-94); Mean Platelet Vol. 9.7 fl (6.2-12.0); Platelet Count 203 K/mm3 (150-450); RBC Distribution Width SD 53.5 fl (35.1-43.9); Red Blood Count 3.28 M/mm3 (4.6-6.2); White Blood Count 10.3 K/mm3 (4.4-11.0)
[2024-02-14] MEDS: 0.9% Normal Saline (1000mL) 1,000 ML 15 ML IV (10:04)
[2024-02-14 11:06] LABS: Anion Gap 2 (5-15); BUN 19 mg/dL (7-18); BUN/Creat Ratio 18.6 RATIO (10-20); Calcium,Total 8.3 mg/dL (8.5-10.1); Chloride 109 mmol/L (98-107); Creatinine, Serum 1.02 mg/dL (0.70-1.30); EST Glomerular Filtration Rate 78 mL/min (>60); Est Glom Filt Rate - Afr Amer 94 mL/min (>60); Estimated Creatinine Clearance 64.29 ml/min; Glucose 88 mg/dL (74-106); Potassium 3.6 mmol/L (3.5-5.1); Sodium Level 141 mmol/L (136-145)
--- NOTE | 2024-02-14 11:16 | DS.PCM_ITS ---
Providers Primary Care Physician: WILLARD Medrano Reason For Visit: BMT with T tubes Medications at Discharge Home Medications atorvastatin 40 mg tablet 40 mg PO QHS cholesterol 08/14/15 omeprazole 20 mg capsule,delayed release 20 mg PO DAILY gerd 08/14/15 potassium chloride 10 mEq tablet,extended release(part/cryst) 10 meq PO DAILY supplement 08/14/15 promethazine 25 mg tablet 25 mg PO PRN PRN Nausea 08/14/15 spironolactone 25 mg tablet 25 mg PO DAILY bp 08/14/15 Gamunex-C 30 g IV UD 01/13/18 trazodone 150 mg tablet 150 mg PO DAILY sleep 01/13/18 acetaminophen 325 mg tablet (Pain Reliever (acetaminophen)) 650 mg PO QWEEK 02/11/24 alendronate 70 mg tablet 70 mg PO QWEEK 02/11/24 aspirin 81 mg capsule 81 mg PO DAILY 02/11/24 cyanocobalamin (vitamin B-12) 1,000 mcg tablet (Vitamin B-12) 1,000 mcg PO DAILY 02/11/24 dextrose 5 % in water (D5W) 250 ml IV UD 02/11/24 diphenhydramine HCl 25 mg capsule (Allergy Medication) 25 mg PO QWEEK 02/11/24 eletriptan 40 mg tablet 40 mg PO Q2H PRN migraine headache 02/11/24 erenumab-aooe 140 mg/mL subcutaneous auto-injector (Aimovig Autoinjector) 140 mg subcut QMONTH 02/11/24 hydrocortisone sod succinate 100 mg solution for injection (Solu-Cortef) 100 mg IM UD 02/11/24 hydroxychloroquine 200 mg tablet 300 mg PO DAILY 02/11/24 ipratropium bromide 42 mcg (0.06 %) nasal spray 2 spray intranasal BID 02/11/24 mycophenolate mofetil 500 mg tablet 500 mg PO BID 02/11/24 prednisone 20 mg tablet 20 mg PO DAILY 02/11/24 propranolol 80 mg tablet 80 mg PO BID 02/11/24 tamsulosin 0.4 mg capsule 0.4 mg PO DAILY 02/11/24 Weight / BMI Weight Weight: 64.229 kg Body Mass Index (BMI) 22.8 ABG / Lab / Microbiology Data 02/14/24 09:56 02/14/24 09:56 Laboratory: Laboratory Results - last 24 hr 02/14/24 09:56: WBC 10.3, RBC 3.28 L, Hgb 9.8 L, Hct 31.9 L, MCV 97.3 H, MCH 29.9, MCHC 30.7 L, RDW Std Deviation 53.5 H, RDW Coeff of Eric 15.0 H, Plt Count 203, MPV 9.7, Sodium 141, Potassium 3.6, Chloride 109 H, Carbon Dioxide 30.0, A nion Gap 2 L, BUN 19 H, Creatinine 1.02, Estim Creat Clear Calc 64.29, Est GFR (MDRD) Af Amer 94, Est GFR (MDRD) Non-Af 78, BUN/Creatinine Ratio 18.6, Glucose 88, Calcium 8.3 L D/C Instructions Discharge Diet: No restrictions Discharge Activity: Return to Normal Activity Additional Activity Instructions: ear drops....5 drops each ear twice a day for 2 days (3 doses) DC O2, CPAP, BIPAP Needs Home O2 Discharge instructions: No Please Follow Up With: Jose Grimes MD When: 3 weeks Meaningful Use Info Meaningful Use Meaningful Use Diagnoses (Choose all that apply): None applicable Ischemic Stroke Statin Dosing Therapy Reference: STATIN DOSE THERAPY REFERENCE: * Patients > 75 years receive moderate or high dose statin therapy. * Patients 75 years or YOUNGER should receive HIGH intensity statin dose unless contraindicated. You will be required to document reason for non-treatment if statin daily dose does not meet guidelines. HIGH DOSE STATIN THERAPY DAILY Atorvastatin > than or = to 40 mg Rosuvastatin > than or = to 20 mg Amlodipine + Atorvastatin > than or = to 2.5/40 mg Ezetimibe + Simvastatin 10/80 mg Simvastatin 80mg Discharge Plan Admission Attending Provider: Jose Grimes Primary Care Provider: Lesa Clemente NP Instructions Print Language: Kiswahili Discharge Orders/Prescriptions Prescriptions: No Action atorvastatin 40 MG tablet 40 mg PO QHS Patient Comments: CHOLESTEROL spironolactone 25 MG tablet 25 mg PO DAILY Patient Comments: HEART promethazine 25 MG tablet 25 mg PO PRN PRN (Reason: Nausea) omeprazole 20 MG capsule 20 mg PO DAILY Patient Comments: REFLUX potassium chloride 10 MEQ tablet 10 meq PO DAILY trazodone 150 MG tablet 150 mg PO DAILY Gamunex-C 30 g IV UD Patient Comments: ONCE WEEKLY Rx Instructions: TAKES [id number] FOR 2 DAYS next dose 12.17/12.18 hydrocortisone sod succinate [Solu-Cortef] 100 mg recon soln 100 mg IM UD Patient Comments: ONCE WEEKLY PRE-DOSE dextrose 5 % in water (D5W) Parenteral Solution 250 ml IV UD Patient Comments: Q WEEK acetaminophen [Pain Reliever (acetaminophen)] 325 mg tablet 650 mg PO QWEEK Patient Comments: PRE-TX diphenhydramine HCl [Allergy Medication] 25 mg capsule 25 mg PO QWEEK Patient Comments: PRE-TX prednisone 20 mg tablet 20 mg PO DAILY propranolol 80 mg tablet 80 mg PO BID mycophenolate mofetil 500 mg tablet 500 mg PO BID aspirin 81 mg capsule 81 mg PO DAILY tamsulosin 0.4 mg capsule 0.4 mg PO DAILY alendronate 70 mg tablet 70 mg PO QWEEK hydroxychloroquine 200 mg tablet 300 mg PO DAILY cyanocobalamin (vitamin B-12) [Vitamin B-12] 1,000 mcg tablet 1,000 mcg PO DAILY Aimovig Autoinjector 140 mg/mL auto-injector 140 mg subcut QMONTH eletriptan 40 mg tablet 40 mg PO Q2H PRN (Reason: migraine headache) Rx Instructions: do not exceed 2 doses per 24 hrs ipratropium bromide 42 mcg (0.06 %) spray,non-aerosol 2 spray INTRANASAL BID Referrals / Follow Up: Lesa Clemente NP, PLANT MAINTENANCE WORKER-C [Primary Care Provider] - Disposition Disposition (needs filled in before D/C Order can be placed): Home, Self Care
--- NOTE | 2024-02-14 11:50 | OP.PCM_ITS ---
Operative Report (Standard) Operative Information Date of Procedure: 02/14/24 Pre-Operative Diagnosis: chronic serous otitis bilaterally bilateral eustachian tube dysfunction Post-Operative Diagnosis: same Surgery/Procedure Performed: Bilateral myrngotomy with t tubes equipment operator/laborer: No Type of Anesthesia: General RN Documented Start/Stop Times: Operation Date: 02/14/24 11:00 Case Time Into Pre-Op 02/14/24 09:35 Procedure Start Time: 11:49 Procedure Stop Time: 12:05 Select all DRAINS/GRAFTS/IMPLANTS that apply: None Estimated Blood Loss: minimal Specimen collected: No Description of surgery: The patient was taken to the operating room on 02/14/2024. The patient was placed in the supine position on the operating room table. The patient was given sufficient general anesthesia. The operating microscope was used throughout the entire case. A speculum was inserted into the patient's left ear. Cerumen was removed using a curette. An incision was placed in the anterior inferior quadrant of the tympanic membrane. Fluid was suctioned from the middle ear space using #3 suction. A T tube was placed without difficulty. Antibiotic drops were instilled into the patient's ear. Next, a speculum was inserted into the patient's right ear. Cerumen and the old tube was removed using a curette and alligator forceps. A hole was seen in the anterior inferior quadrant. A T tube was placed without difficulty. Antibiotic drops were instilled into the patient's ear. The patient was then awoken and brought to the recovery room in stable condition. Blood loss minimal, replacement none. sponge, needle and instrument counts correct at the end of the procedure. Surgical Findings: plugged t tube on the left. Fluid bilaterally Complications Complications: No
[2024-02-14] MEDS: Ciprofloxacin 0.3% 2.5ml Bottle 1 DRP (11:55)
--- NOTE | 2024-02-14 12:21 | PCM.POST.ANE ---
Anesthesia: Postop Eval I Current Vital Signs Temperature: 97.2 F Pulse Rate: 76 (Paced) Blood Pressure: 106/74 Respiratory Rate: 18 Pulse Ox: 93 Assessment Airway patent: Yes Spontaneous unlabored respirations: Yes nausea: No Vomiting: No Anesthesia Complication: No Fluid Hydration Crystalloid volume administer (ml): 800 Total IV fluid infused: 800 Progress Note Anesthesia document: Postop Eval 1 completed: Yes
[2024-02-14 12:22] VITALS: BP 106/74; BP 114/90; PULSE 76; RESP 18; TEMP 36.2; O2SAT 93
[2024-02-14 12:25] VITALS: BP 107/70; BP 114/90; PULSE 76; RESP 18; O2SAT 95
[2024-02-14 12:30] VITALS: BP 103/68; BP 114/90; PULSE 76; RESP 18; O2SAT 95
[2024-02-14 12:35] VITALS: BP 106/61; BP 114/90; PULSE 76; RESP 18; TEMP 36.2; O2SAT 95
--- NOTE | 2024-02-14 12:44 | POSTOPAN2_ITS ---
Anesthesia Postop Eval I Sum Postop Eval Completion status Anesthesia document: Postop Eval 1 completed: Yes Anesthesia Postop Eval I Summary Anesthesia Postop Eval I Summary: Anesthesia Postop Eval I: Assessment Summary Airway patent Yes 02/14/24 12:22 MANAGER [email or web address].CSIR Spontaneous unlabored Yes 02/14/24 12:22 MANAGER INVESTIGATIONS.CSIR respirations Mental status nausea No 02/14/24 12:22 MANAGER INVESTIGATIONS.CSIR Vomiting No 02/14/24 12:22 MANAGER INVESTIGATIONS.CSIR Anesthesia Postop Eval I: Fluid Summary Crystalloid volume administer 800 02/14/24 12:22 MANAGER INVESTIGATIONS.CSIR (ml) Colloids volume administered ( ml) Blood Product volume administered (ml) Total IV fluid infused 800 02/14/24 12:22 MANAGER INVESTIGATIONS.CSIR Anesthesia Postop Eval I: Summary Notes Anesthesia Complication No 02/14/24 12:22 MANAGER INVESTIGATIONS.CSIR Anesthesia Complication Comment: Post-operative progress note Anesthesia: Postop Eval II Evaluation Mental status: Awake Pain Level: 0 nausea: No Vomiting: No
--- NOTE | 2024-02-14 12:44 | PCM.POSTANE2 ---
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
== END 2024-02-14 13:11 | disposition home or self-care (01) ==
LOC: SDC 09:19 → AC 09:22
PROVIDERS: PCP Nurse Practitioner Primary Care; Referring Provider Otolaryngology; Visit Provider Otolaryngology
PROC: (CPT 69436; principal; 2024-02-14 10:55)
DX: H65.23 Chronic serous otitis media, bilateral (principal); H69.83 Other specified disorders of Eustachian tube, bilateral; I10 Essential (primary) hypertension; E78.00 Pure hypercholesterolemia, unspecified
CPT/HCPCS: 69436; 00126; 80048; 85027; A4216; J2405